=== PATIENT | female | born 1955 | race Caucasian/White ===

== ENCOUNTER → 2017-07-29 | Outpatient (CLI) | payer BC ==
--- NOTE | 2017-07-29 09:31 | REPMRS ---
Patient History The patient states she had a clinical breast exam in 05/2017. Patient is postmenopausal and is nulliparous. No known family history of cancer. Digital Woman Screen Mammo: July 29, 2017 - Exam #: [id number] Bilateral CC and MLO view(s) were taken. Technologist: Alicia Díaz, Technologist Prior study comparison: June 24, 2016, digital woman screen mammo performed at [facility] to [facility]. May 16, 2015, digital woman screen mammo performed at [facility]. May 13, 2014, bilateral bilat screen digital mammo, performed at [facility] ([facility]). FINDINGS: There are scattered fibroglandular densities. There has been no change in the appearance of the mammogram from the prior studies. There is a mild amount of scattered fibroglandular density which is fairly symmetric. There is no interval development of dominant mass, architectural distortion, or clustered microcalcification suggestive of malignancy. ASSESSMENT: BI-RADS/ACR category 1 mammogram. Negative. Recommendation Routine screening mammogram in 1 year (for women over age 40). This mammogram was interpreted with the aid of an FDA-approved computer-aided dectection system. Electronically Signed By: Paulo Marquez MD 07/29/17 [id number]
== END ==
LOC: M WHC 07:53
PROVIDERS: ATTEND Nurse Practitioner Family
DX: Z12.31 Encounter for screening mammogram for malignant neoplasm of breast (principal)

== ENCOUNTER → 2018-06-19 | Outpatient (REF) | payer MEDICARE, BC ==
[2018-06-19 16:43] LABS: PLATELET COUNT, AUTOMATED 255 10^3/uL (150-450)
[2018-06-19 17:01] LABS: INR 0.97
[2018-06-19 17:02] LABS: PARTIAL THROMBOPLASTIN TIME 26.9 SECONDS (25.4-37.6)
== END ==
LOC: M LABDRAW1 16:36
DX: Z01.812 Encounter for preprocedural laboratory examination (principal); Z79.01 Long term (current) use of anticoagulants
CPT/HCPCS: 85049

== ENCOUNTER → 2018-08-07 | Outpatient (REF) | payer MEDICARE, BC | LOC: M LAB REF 16:35 | DX: N39.0 Urinary tract infection, site not specified (principal) | CPT/HCPCS: 87186 ==

== ENCOUNTER → 2018-08-17 | Outpatient (CLI) | payer MEDICARE | LOC: M WHC 13:13 | DX: Z12.31 Encounter for screening mammogram for malignant neoplasm of breast (principal); Z78.0 Asymptomatic menopausal state; R92.1 Mammographic calcification found on diagnostic imaging of breast | CPT/HCPCS: 77067 ==

== ENCOUNTER → 2018-08-28 | Outpatient (REF) | payer MEDICARE | LOC: M LAB REF 16:39 | DX: N39.0 Urinary tract infection, site not specified (principal) | CPT/HCPCS: 87186 ==

== ENCOUNTER → 2018-09-21 | Outpatient (REF) | payer MEDICARE ==
[2018-09-21 14:43] LABS: APPEARANCE, URINE MANUAL HAZY (CLEAR); COLOR, URINE MANUAL LT YELLOW (YELLOW); PROTEIN, URINE MANUAL TRACE mg/dL (NEGATIVE)
[2018-09-21 14:44] LABS: BILIRUBIN, URINE MANUAL NEGATIVE (NEGATIVE); BLOOD URINE MANUAL NEGATIVE (NEGATIVE); GLUCOSE, URINE (UA) MANUAL 2+(250 MG/DL) mg/dL (NEGATIVE); KETONE, URINE MANUAL NEGATIVE (NEGATIVE); LEUKOCYTE ESTERASE, URINE MAN NEGATIVE (NEGATIVE); NITRITE, URINE MANUAL NEGATIVE (NEGATIVE); UROBILINOGEN, URINE MANUAL NORMAL (NORMAL)
[2018-09-21 22:19] LABS: BACTERIA, URINE SMALL AMOUNT; HYALINE CAST, URINE NONE SEEN /lpf (0-1); RBC, URINE NONE SEEN /hpf (0-3); SQUAMOUS EPITHELIAL CELL URINE SMALL AMOUNT /hpf (SMALL AMT)
== END ==
LOC: M SMT 14:04
PROVIDERS: ATTEND Nurse Practitioner Women's Health
DX: R35.0 Frequency of micturition (principal)

== ENCOUNTER → 2018-10-10 | Outpatient (REF) | payer MEDICARE | LOC: M LAB REF 15:39 | PROVIDERS: ATTEND Nurse Practitioner Family | DX: R19.7 Diarrhea, unspecified (principal) ==

== ENCOUNTER → 2018-11-22 | Outpatient (REF) | payer MEDICARE ==
[2018-11-22 19:29] LABS: BACTERIA, URINE AUTO NEGATIVE (NEGATIVE); MUCUS, URINE SMALL (NEGATIVE); RBC, URINE AUTO 1 /HPF (0-3); SQUAMOUS EPITHELIAL CELL UR AU 1 /HPF (0-6); WBC, URINE AUTO 4 /HPF (0-3)
== END ==
LOC: M SMT 17:11
PROVIDERS: ATTEND Specialist
DX: R35.0 Frequency of micturition (principal)
CPT/HCPCS: 52000; 81015; 87088; 87186; G0463

== ENCOUNTER → 2018-12-29 | Outpatient (REF) | payer MEDICARE ==
[2018-12-29 13:04] LABS: MONO SCRN NEGATIVE (NEGATIVE)
[2018-12-29 18:09] LABS: FOLATE 19.6 NG/ML
== END ==
LOC: M LAB REF 12:34
PROVIDERS: ATTEND Internal Medicine
DX: I88.8 Other nonspecific lymphadenitis (principal); D50.9 Iron deficiency anemia, unspecified

== ENCOUNTER → 2019-01-17 | Outpatient (CLI) | payer MEDICARE | LOC: M LAB 14:27 | PROVIDERS: ATTEND Internal Medicine Gastroenterology | DX: E61.1 Iron deficiency (principal); D51.9 Vitamin B12 deficiency anemia, unspecified ==

== ENCOUNTER → 2019-02-13 | Outpatient (REF) | payer MEDICARE ==
[~2019-02-13] MED LIST: ADV500INH; B-12100021 PO; CALC500C16 PO; CLAR10CA3 PO; FERR324T2; FISH1000 PO; FLUT1BLS6; GABA-843; GLIP10TA18; LEVE1INJ5; LISI20TA; LOVA40TA; METF10004; METH-855; OMEP-218; OPTI0.5D5 OP; OXYB10TA; VENTAER; VITA-157 PO; tylenol PO
[2019-02-13 13:29] LABS: BACTERIA, URINE AUTO NEGATIVE (NEGATIVE); MUCUS, URINE SMALL (NEGATIVE); RBC, URINE AUTO 2 /HPF (0-3); SQUAMOUS EPITHELIAL CELL UR AU 2 /HPF (0-6); WBC, URINE AUTO 5 /HPF (0-3)
== END ==
LOC: M SMT 13:14
PROVIDERS: ATTEND Specialist
DX: R35.0 Frequency of micturition (principal)
CPT/HCPCS: 81015; 87088; 87186; G0463

== ENCOUNTER 2019-03-05 09:38 | Day surgery (SDC) | payer MEDICARE ==
[~2019-03-05] VITALS: Ht 160 cm; Wt 89.8 kg
[~2019-03-05 09:38] MED LIST changes: +NS 1,000 ML IV ONE
[2019-03-05] MEDS ORDERED: LIDOCAINE 2% INJ 100 MG/5 ML SDV (FOR ANES.) As Ordered ONE (10:57)
[2019-03-05] MEDS ORDERED: PROPOFOL 500 MG/50 ML VIAL As Ordered ONE (10:57)
[2019-03-05] MEDS ORDERED: fentaNYL 100 MCG/2 ML INJECTION (J3010) As Ordered ONE (10:57)
--- NOTE | 2019-03-05 11:03 | ROOR ---
Patient Name: Misty Kaplan Procedure Date: 03/05/2019 10:45 AM Date of : 1955 Age: 63 Room: [facility] Gender: Female Note Status: Finalized Procedure: Upper GI endoscopy Indications: Iron deficiency anemia Providers: Kaushal GARCIA MD Referring MD: Suzanne LOVE MD Requesting Provider: Medicines: Monitored Anesthesia Care Complications: No immediate complications. Procedure: Pre-Anesthesia Assessment: - The heart rate, respiratory rate, oxygen saturations, blood pressure, adequacy of pulmonary ventilation, and response to care were monitored throughout the procedure. The Endoscope was introduced through the mouth, and advanced to the third part of duodenum. The upper GI endoscopy was accomplished without difficulty. The patient tolerated the procedure well. Findings: The examined esophagus was normal. Multiple small semi-sessile fundic gland polyps were found in the gastric fundus and in the gastric body. This was biopsied with a cold forceps for histology. The exam of the stomach was otherwise normal. The examined duodenum was normal. Biopsies for histology were taken with a cold forceps for evaluation of celiac disease. Impression: - Normal esophagus. - Multiple fundic gland polyps. Biopsied. - The stomach is otherwise normal. - Normal examined duodenum. Biopsied. Recommendation: - Perform a colonoscopy today. Kaushal Garcia MD Kaushal GARCIA MD 03/05/2019 11:03:25 AM Electronically signed by Kaushal GARCIA MD Number of Addenda: 0 Note Initiated On: 03/05/2019 10:45 AM Estimated Blood Loss: Estimated blood loss: none.
--- NOTE | 2019-03-05 11:16 | ROOR ---
Patient Name: Misty Kaplan Procedure Date: 03/05/2019 10:46 AM Date of : 1955 Age: 63 Room: [facility] Gender: Female Note Status: Finalized Procedure: Colonoscopy Indications: Iron deficiency anemia Providers: Kaushal GARCIA MD Referring MD: Suzanne LOVE MD Requesting Provider: Medicines: Monitored Anesthesia Care Complications: No immediate complications. Procedure: Pre-Anesthesia Assessment: - The heart rate, respiratory rate, oxygen saturations, blood pressure, adequacy of pulmonary ventilation, and response to care were monitored throughout the procedure. The Colonoscope was introduced through the anus and advanced to 10 cm into the ileum. The colonoscopy was performed without difficulty. The patient tolerated the procedure well. The quality of the bowel preparation was good. Findings: The perianal and digital rectal examinations were normal. Mild sigmoid diverticulosis and small internal hemorrhoids. The entire examined colon appeared normal on direct and retroflexion views. The terminal ileum appeared normal. Impression: - Mild sigmoid diverticulosis and small internal hemorrhoids. - The entire colon is otherwise normal on direct and retroflexion views. - The examined portion of the ileum was normal. - No specimens collected. Recommendation: - Continue present medications. - Return to referring physician as previously scheduled. Kaushal Garcia MD Kaushal GARCIA MD 03/05/2019 11:16:21 AM Electronically signed by Kaushal GARCIA MD Number of Addenda: 0 Note Initiated On: 03/05/2019 10:46 AM Estimated Blood Loss: Estimated blood loss: none.
[2019-03-05 11:48] VITALS: BP 165/76
== END 2019-03-05 11:48 | disposition home or self-care (01) ==
LOC: M OPP 09:38
PROVIDERS: ATTEND Internal Medicine Gastroenterology
DX: K31.7 Polyp of stomach and duodenum (principal); D50.9 Iron deficiency anemia, unspecified; K64.8 Other hemorrhoids; K57.30 Diverticulosis of large intestine without perforation or abscess without bleeding; Z79.899 Other long term (current) drug therapy; Z88.8 Allergy status to other drugs, medicaments and biological substances
CPT/HCPCS: 43239; 45378; 88305; J3010

== ENCOUNTER → 2019-03-19 | Outpatient (REF) | payer MEDICARE ==
[~2019-03-19] MED LIST changes: -NS 1,000 ML IV ONE
== END ==
LOC: M LAB REF 13:23
PROVIDERS: ATTEND Nurse Practitioner Family
DX: R35.0 Frequency of micturition (principal)

== ENCOUNTER → 2019-03-29 | Outpatient (REF) | payer MEDICARE | LOC: M LAB REF 12:36 | PROVIDERS: ATTEND Nurse Practitioner Family | DX: R35.0 Frequency of micturition (principal) ==

== ENCOUNTER → 2019-04-19 | Outpatient (REF) | payer MEDICARE ==
[2019-04-19 14:11] LABS: FOLATE 18.2 NG/ML; TOTAL PROTEIN 6.7 GM/DL (6.4-8.2); VITAMIN B12 LEVEL 739 PG/ML
[2019-04-24 09:13] LABS: CERULOPLASMIN 18.8 mg/dL (19.0-39.0); COPPER PLASMA 77 ug/dL (72-166); LEAD BLOOD ADULT <1 ug/dL (0-4); MERCURY LEVEL None Detected ug/L (0.0-14.9); VITAMIN B1 LEVEL WHOLE BLOOD 135.5 nmol/L (66.5-200.0); VITAMIN B6,PYRIDOXAL PHOSPHATE 8.7 ug/L (2.0-32.8); VITAMIN E(ALPHA TOCOPHEROL) 32.1 mg/L (9.0-29.0); VITAMIN E(GAMMA TOCOPHEROL) 0.5 mg/L (0.5-4.9)
[2019-04-24 13:55] LABS: ALBUMIN 4.33 GM/DL (3.29-5.55); ALBUMIN % 64.7 % (55.8-66.1); ALPHA-1-GLOBULIN % 3.8 % (2.9-4.9); ALPHA-1-GLOBULINS 0.25 GM/DL (0.17-0.41); ALPHA-2-GLOBULINS 0.71 GM/DL (0.42-0.99); ALPHA-2-GLOBULINS % 10.6 % (7.1-11.8); BETA-1-GLOBULINS 0.47 GM/DL (0.28-0.60); BETA-2-GLOBULINS 0.29 GM/DL (0.19-0.55); BETA-2-GLOBULINS % 4.3 % (3.2-6.5); GAMMA GLOBULIN % 9.6 % (11.1-18.8); GAMMA GLOBULINS 0.64 GM/DL (0.65-1.58)
== END ==
LOC: M LABNEURO 10:06
PROVIDERS: ATTEND Psychiatry & Neurology Neurology
DX: G62.9 Polyneuropathy, unspecified (principal); E53.8 Deficiency of other specified B group vitamins

== ENCOUNTER → 2019-05-20 | Outpatient (CLI) | payer MEDICARE ==
[~2019-05-20] MED LIST changes: -LISI20TA; +LISI20TA19; -OXYB10TA; +OXYB10TA2
--- NOTE | 2019-05-24 10:44 | SLEEPCENT ---
DATE OF STUDY: 05/20/2019 ORDERED BY: Sanjuana Romero Nocturnal polysomnography was performed for evaluation sleep physiology in this patient with a history of excessive somnolence and nonrestorative sleep who has comorbidities of hypertension and diabetes. 7 hours and 3 minutes of data were reviewed. There were 185 minutes of sleep identified. Sleep latency was prolonged at 127 minutes. Rapid eye movement (REM) latency was prolonged at 234 minutes. Sleep architecture showed poor progression and significant fragmentation with 1 REM cycle. Overall sleep efficiency was 44.3%. The patient's electrocardiogram showed a sinus rhythm with an average heart rate of 65 beats per minute. Electroencephalogram (EEG) showed reasonably normal waveforms for awake and sleep stages. There were 136 respiratory events identified of 10 seconds in duration or greater for an apnea-hypopnea index of 44.1. The events were primarily obstructive, not exclusive to sleep stage nor body posture. Arousals from respiratory events occurred 8.8 times per hour and oxygen desaturations were seen into the 80s. Remaining measures of sleep physiology were reasonably normal. IMPRESSION: Obstructive sleep apnea syndrome (G47.33). Apnea-hypopnea index 44.1. RECOMMENDATION: The patient should be encouraged to return to the sleep disorder center for pressure therapy. In the interim, alcohol and sedative avoidance should be practiced and caution exercised during the operation of motor vehicles.
== END ==
LOC: M SLEEP 20:00
PROVIDERS: ATTEND Nurse Practitioner Family
DX: R40.0 Somnolence (principal)

== ENCOUNTER → 2019-08-29 | Outpatient (CLI) | payer MEDICARE ==
--- NOTE | 2019-08-29 13:10 | REPMRS ---
Patient History The patient states she had a clinical breast exam in May 2019.No known family history of cancer. No Hormone Replacement Therapy 3D TOMOSYNTHESIS WAS PERFORMED. [facility] for [facility]%. Digital Woman Screen Mammo: August 29, 2019 - Exam #: [id number] Bilateral CC and MLO view(s) were taken. Technologist: Guerline Adkins, Technologist Prior study comparison: August 17, 2018, bilateral digital woman screen mammo performed at [facility]. July 29, 2017, digital woman screen mammo performed at [facility]. FINDINGS: There are scattered fibroglandular densities. There has been no change in the appearance of the mammogram from the prior studies. There is a mild amount of residual fibroglandular tissue which is fairly symmetric. There is no interval development of dominant mass, architectural distortion, or clustered microcalcification suggestive of malignancy. Assessment: BI-RADS/ACR category 1 mammogram. Negative Mammogram. Recommendation Routine screening mammogram in 1 year (for women over age 40). This mammogram was interpreted with the aid of an FDA-approved computer-aided dectection system. Electronically Signed By: Miguel Reyes MD 08/29/19 0175
== END ==
LOC: M WHC 12:02
PROVIDERS: ATTEND Nurse Practitioner Family
DX: Z12.31 Encounter for screening mammogram for malignant neoplasm of breast (principal)

== ENCOUNTER 2019-09-10 13:47 | Emergency (ER) | payer MEDICARE ==
[~2019-09-10] VITALS: Ht 162.6 cm; Wt 81.8 kg
[2019-09-10 14:33] LABS: BASO # 0.1 10^3/uL (0.0-0.2); BASO % 0.6 % (0.0-1.0); EOS # 0.3 10^3/uL (0.0-0.5); EOS % 3.4 % (0.0-3.0); HEMATOCRIT 38.8 % (36.0-47.0); HEMOGLOBIN 12.5 g/dl (12.0-15.5); LYMPH # 1.8 10^3/uL (1.5-5.0); LYMPH % 20.9 % (24.0-44.0); MEAN CORPUSCULAR HEMOGLOBIN 28.3 pg (27.0-33.0); MEAN CORPUSCULAR HGB CONC 32.2 g/dl (32.0-36.5); MEAN CORPUSCULAR VOLUME 87.8 fl (80.0-96.0); MONO # 0.6 10^3/uL (0.0-0.8); MONO % 6.9 % (0.0-5.0); NEUTROPHILS # 5.8 10^3/uL (1.5-8.5); NEUTROPHILS % 66.3 % (36.0-66.0); PLATELET COUNT, AUTOMATED 303 10^3/uL (150-450); RED BLOOD COUNT 4.42 10^6/uL (4.00-5.40); WHITE BLOOD COUNT 8.7 10^3/uL (4.0-10.0)
--- NOTE | 2019-09-10 14:44 | REP ---
Clinical: Acute chest pain . Comparison: None . Findings: The mediastinum and cardiac silhouette are stable and within normal limits for portable technique. The lung otero are clear without acute consolidation, effusion, or pneumothorax. Skeletal structures are intact. Impression: No acute cardiopulmonary process appreciated. Electronically Signed by Fernie Loaiza MD 09/10/2019 02:36 P
[2019-09-10 15:07] LABS: BLOOD UREA NITROGEN 23 MG/DL (7-18); CALCIUM LEVEL 9.3 MG/DL (8.8-10.2); CARBON DIOXIDE LEVEL 22 MEQ/L (21-32); CHLORIDE LEVEL 102 MEQ/L (98-107); CK-MB VALUE MASS 8.5 NG/ML (<3.6); CPK CREATINE PHOSPHOKINASE 173 U/L (26-192); CREATININE FOR GFR 1.14 MG/DL (0.55-1.30); GLOMERULAR FILTRATION RATE 50.8 (>45); GLUCOSE, FASTING 275 MG/DL (70-100); MB/CK RELATIVE INDEX 4.91 (< OR =4); POTASSIUM SERUM 5.1 MEQ/L (3.5-5.1); SODIUM LEVEL 137 MEQ/L (136-145); TROPONIN I < 0.02 NG/ML (< 0.10)
[2019-09-10 16:10] VITALS: BP 116/58
--- NOTE | 2019-09-10 19:57 | ECGEPIP ---
[facility] - ED Test Date: 2019-09-10 Pat Name: STEWART DECKER Department: Room: - Gender: Female Complaint Investigator: : 1955 Requested By: Johnny Soto Order Number: [id number] Reading MD: Josias Elizabeth Measurements Intervals [place] Rate: 85 P: 16 UT: 140 QRS: -8 QRSD: 75 T: 63 QT: 328 QTc: 392 Interpretive Statements SINUS RHYTHM POOR R WAVE PROGRESSION NO PRIORS FOR COMPARISON Electronically Signed on 09-10-2019 19:56:56 EST by Josias Elizabeth
== END 2019-09-10 17:06 | disposition home or self-care (01) ==
LOC: M ED 13:47
DX: M94.0 Chondrocostal junction syndrome [Tietze] (principal); E11.9 Type 2 diabetes mellitus without complications; I10 Essential (primary) hypertension; E78.5 Hyperlipidemia, unspecified; K21.9 Gastro-esophageal reflux disease without esophagitis; J45.909 Unspecified asthma, uncomplicated; J44.9 Chronic obstructive pulmonary disease, unspecified; Z79.4 Long term (current) use of insulin; Z79.899 Other long term (current) drug therapy; Z88.2 Allergy status to sulfonamides; Z88.8 Allergy status to other drugs, medicaments and biological substances

== ENCOUNTER → 2019-10-10 | Outpatient (REF) | payer MEDICARE ==
[~2019-10-10] MED LIST changes: -OXYB10TA2; +OXYB10TA23
[2019-10-10 13:33] LABS: BACTERIA, URINE AUTO NEGATIVE (NEGATIVE); MUCUS, URINE SMALL (NEGATIVE); RBC, URINE AUTO 1 /HPF (0-3); SQUAMOUS EPITHELIAL CELL UR AU 2 /HPF (0-6); WBC, URINE AUTO 5 /HPF (0-3)
== END ==
LOC: M SMT 13:01
PROVIDERS: ATTEND Specialist
DX: R35.0 Frequency of micturition (principal)
CPT/HCPCS: 81015; 87086; G0463

== ENCOUNTER 2020-06-03 14:03 | Emergency (ER) | payer OTHER, MEDICARE ==
[~2020-06-03] VITALS: Ht 162.6 cm; Wt 86.4 kg
[~2020-06-03 14:03] MED LIST changes: -LISI20TA19; +LISI20TA35
--- NOTE | 2020-06-03 15:13 | REPVR ---
PROCEDURE INFORMATION: Exam: CT Head Without Contrast Exam date and time: 06/03/2020 2:59 PM Age: 64 years old Clinical indication: Syncope and collapse; Additional info: Fall with facial injuries TECHNIQUE: Imaging protocol: Computed tomography of the head without contrast. Radiation optimization: All CT scans at this facility use at least one of these dose optimization techniques: automated exposure control; mA and/or kV adjustment per patient size (includes targeted exams where dose is matched to clinical indication); or iterative reconstruction. COMPARISON: No relevant prior studies available. FINDINGS: Brain: No acute post-traumatic brain injury. Symmetric prominence of the cortical and cerebellar sulci. Mild small vessel ischemic change. Dural calcification. Ventricles: Normal configuration of the ventricles. Bones/joints: No acute calvarial injury. Paranasal sinuses: No sinus fluid. Mastoid air cells: No mastoid effusion. Soft tissues: No significant scalp hematoma. IMPRESSION: No acute post-traumatic brain injury. Electronically signed by: Rob Ochoa On 06/03/2020 15:13:26 PM
--- NOTE | 2020-06-03 15:15 | REPVR ---
PROCEDURE INFORMATION: Exam: CT Maxillofacial Without Contrast Exam date and time: 06/03/2020 2:59 PM Age: 64 years old Clinical indication: Pain; Other: Fall; Additional info: Fall with facial injuries TECHNIQUE: Imaging protocol: Computed tomography images of the face without contrast. Radiation optimization: All CT scans at this facility use at least one of these dose optimization techniques: automated exposure control; mA and/or kV adjustment per patient size (includes targeted exams where dose is matched to clinical indication); or iterative reconstruction. COMPARISON: No relevant prior studies available. FINDINGS: Orbits: Unremarkable appearance of the globes, optic nerves, and extraocular muscles. Bones/joints: No acute facial fracture. Nasal cavity: Leftward deviation of the nasal septum. Paranasal sinuses: No sinus fluid. Soft tissues: No significant facial soft tissue swelling. Dental: Beam hardening artifact is identified in association with dental amalgam. IMPRESSION: No acute facial fracture. Electronically signed by: Rob Ochoa On 06/03/2020 15:15:14 PM
[2020-06-03 16:16] VITALS: BP 116/75
== END 2020-06-03 16:17 | disposition home or self-care (01) ==
LOC: M ED 14:03
DX: S69.92XA Unspecified injury of left wrist, hand and finger(s), initial encounter (principal); S02.5XXA Fracture of tooth (traumatic), initial encounter for closed fracture; S00.83XA Contusion of other part of head, initial encounter; S00.81XA Abrasion of other part of head, initial encounter; X58.XXXA Exposure to other specified factors, initial encounter; Y92.219 Unspecified school as the place of occurrence of the external cause; Y93.01 Activity, walking, marching and hiking; Y99.0 Civilian activity done for income or pay; E11.9 Type 2 diabetes mellitus without complications; I10 Essential (primary) hypertension; K21.9 Gastro-esophageal reflux disease without esophagitis; D64.9 Anemia, unspecified; Z79.4 Long term (current) use of insulin; Z79.899 Other long term (current) drug therapy; Z88.2 Allergy status to sulfonamides; Z88.8 Allergy status to other drugs, medicaments and biological substances

== ENCOUNTER → 2020-12-09 | Outpatient (CLI) | payer MEDICARE ==
[~2020-12-09] MED LIST changes: +GABA-282; -GABA-843; -VITA-157 PO; +VITAE40CA PO
--- NOTE | 2020-12-09 19:48 | REPVR ---
PROCEDURE INFORMATION: Exam: MR Lumbar Spine Without Contrast. Exam date and time: 12/09/2020 6:40 PM Age: 65 years old Clinical indication: Low back pain; Additional info: Lumbar spondylosis ? hnp / stenosis TECHNIQUE: Imaging protocol: Multiplanar magnetic resonance images of the lumbar spine without contrast. COMPARISON: No relevant prior studies available. FINDINGS: Vertebrae: There is slight convexity of the lumbar spine to the right. There is a mild decrease in vertebral height at the L4 vertebral level with increased concavity of the superior endplate. Minimal edema is seen within the bone marrow adjacent to the endplates posteriorly at the L3-L4 level, likely secondary to degenerative changes. Otherwise, there is no significant acute marrow edema within the L4 vertebral body, consistent with a chronic deformity. Mild edema is seen within the bone marrow adjacent the endplates at L2-L3, also likely due to degenerative changes. Grade 1 anterolisthesis of L4 on L5. Spinal cord: The distal end of the conus medullaris ends at L1, normal in position. Multilevel findings: Degenerative disc disease is noted diffusely within the lumbar and visualized lower thoracic spine, with a decrease in the T2 signal intensity of the discs as well as disc bulge/osteophyte complexes. T10-T11: Mild bilateral neural foraminal narrowing identified at T10-11. T12-L1: At T12-L1, there is a small disc protrusion with minimal spinal canal stenosis. No significant neural foraminal narrowing bilaterally. L1-L2: Mild facet arthropathy. Disc bulging visualized, with minimal narrowing of the thecal sac. Mild bilateral neural foraminal narrowing. L2-L3: Bilateral facet arthropathy with hypertrophy of the ligamentum flavum. A broad-based disc bulge is visualized with disc protrusion causing severe narrowing of the thecal sac and narrowing of both lateral recesses. The AP dimension of the thecal sac measures 0.7 cm. Moderate right and severe left neural foraminal narrowing. Mild prominence of the posterior epidural fat. L3-L4: Bilateral facet arthropathy with hypertrophy of the ligamentum flavum. A broad-based disc bulge is visualized with right paracentral disc extrusion causing severe narrowing of the thecal sac and narrowing of both lateral recesses. This extrusion extends inferiorly. The AP dimension of the thecal sac measures 0.6 cm. Severe bilateral neural foraminal narrowing. Mild prominence of the posterior epidural fat. L4-L5: Bilateral facet arthropathy with hypertrophy of the ligamentum flavum. A broad-based disc bulge is identified, with severe narrowing of the thecal sac. The AP dimension of the thecal sac measures 4-5 mm. There is narrowing of both lateral recesses. Mild prominence of the posterior epidural fat. Moderate right and moderate to severe left neural foraminal narrowing. L5-S1: Bilateral facet arthropathy. Disc bulging visualized causing effacement of the anterior epidural fat with minimal narrowing of the thecal sac. Narrowing of both lateral recesses identified. Severe bilateral neural foraminal narrowing. Soft tissues: Mild edema within the subcutaneous tissues posterior to the lumbar spine Kidneys and ureters: Nonspecific perinephric stranding bilaterally. IMPRESSION: 1. There is a mild decrease in vertebral height at the L4 vertebral level with increased concavity of the superior endplate, consistent with a chronic deformity. Mild edema is seen within the bone marrow adjacent the endplates at L2-L3 and L3-L4, likely due to degenerative changes. 2. Grade 1 anterolisthesis of L4 on L5. 3. Degenerative changes are noted diffusely within the lumbar and visualized lower thoracic spine, as described above. 4. Severe narrowing of the thecal sac from L2-L3 through L4-L5. A disc extrusion is noted at L3-L4. There is a broad-based disc bulge with disc protrusion at L2-L3. 5. Minimal narrowing of the thecal sac at L1-L2 and L5-S1. 6. Neural foraminal narrowing visualized diffusely within the lumbar spine, as well as the T10-11 level. 7. Additional findings described above. Electronically signed by: Dainel Sepulveda On 12/09/2020 19:48:47 PM
== END ==
LOC: M PLARAD 15:57
PROVIDERS: ATTEND Physician Assistant
DX: M43.06 Spondylolysis, lumbar region (principal)

== ENCOUNTER → 2020-12-18 | Outpatient (CLI) | payer MEDICARE, OTHER ==
[~2020-12-18] MED LIST changes: +ISOVUE-300 61% 50ML VIAL As Ordered ONE; +LIDOCAINE 1% MDV 20ML VIAL As Ordered ONE; +TRIAMCINOLONE ACETONIDE SUSP 40 MG/ML VIAL (J3301) As Ordered ONE
--- NOTE | 2020-12-18 17:38 | REP ---
INDICATION: OSTEOARTHRITIS LEFT HIP. COMPARISON: None. TECHNIQUE: The procedure was performed under the direct supervision of Dr. Reyes. The benefits and risks including but not limited to pain infection and bleeding and anaphylaxis were explained to the patient and informed consent was obtained. The left femoral neck was localized using fluoroscopic guidance. The skin was prepped and draped in a sterile fashion. 1% lidocaine was used as a local anesthetic. Using fluoroscopic guidance a 22-gauge spinal needle was inserted and advanced to the femoral neck. 0.5 ml of Isovue-300 was injected to verify placement. 6 ml of a solution containing 5 ml of 1% Xylocaine and 1 ml of Kenalog 40 mg was injected. The needle was then removed. The patient tolerated the procedure well and there were no immediate complications. Less than 6 seconds of fluoro time was utilized for this procedure. FINDINGS: None IMPRESSION: Fluoro guided left hip injection. <Electronically signed by Cristopher Mirza > 12/18/20 [id number] <Electronically signed by Miguel Reyes > 12/18/20 [id number]
== END ==
LOC: M RADPRO 10:28
PROVIDERS: ATTEND Physician Assistant
DX: M16.12 Unilateral primary osteoarthritis, left hip (principal)
CPT/HCPCS: 20610; 77002; J3301; Q9967

== ENCOUNTER 2021-02-09 10:01 | Emergency (ER) | payer MEDICARE ==
[~2021-02-09] VITALS: Ht 162.6 cm; Wt 81.8 kg
[~2021-02-09 10:01] MED LIST changes: -ISOVUE-300 61% 50ML VIAL As Ordered ONE; -LIDOCAINE 1% MDV 20ML VIAL As Ordered ONE; -TRIAMCINOLONE ACETONIDE SUSP 40 MG/ML VIAL (J3301) As Ordered ONE
--- NOTE | 2021-02-09 11:17 | REP ---
INDICATION: SWELLING REDDNESS COMPARISON: None. TECHNIQUE: Reyes scale and color Doppler evaluation right lower extremity using linear high frequency transducer. FINDINGS: Ultrasound examination of the right lower extremity deep venous structures from the common femoral vein to the popliteal vein demonstrates normal compressibility flow and wave patterns in response to respiration and augmentation. There is no evidence for deep venous thrombosis. IMPRESSION: No evidence for deep venous thrombosis. <Electronically signed by Fernie Loaiza > 02/09/21 1116
[2021-02-09] MEDS ORDERED: CLIN150C15 PO (11:51)
[2021-02-09] MEDS ORDERED: DIFL150T PO (11:51)
[2021-02-09 12:03] VITALS: BP 158/76
== END 2021-02-09 12:05 | disposition home or self-care (01) ==
LOC: M ED 10:01
DX: L03.115 Cellulitis of right lower limb (principal); E11.9 Type 2 diabetes mellitus without complications; Z79.4 Long term (current) use of insulin; Z79.899 Other long term (current) drug therapy; Z88.2 Allergy status to sulfonamides; Z88.6 Allergy status to analgesic agent